=== PATIENT | male | born 1980 | race Two or more races ===

== ENCOUNTER 2021-11-20 23:36 | Emergency (ER) | payer SELFPAY ==
[~2021-11-20] VITALS: Ht 170.2 cm; Wt 81.6 kg
[2021-11-20 23:54] VITALS: BP 147/98
[2021-11-21] MEDS ORDERED: diphenhdrAMINE HCL 25 MG CAP PO ONE (05:00)
[2021-11-21] MEDS ORDERED: PRED20TA2 PO (05:12)
[2021-11-21] MEDS ORDERED: FAMO-12 PO (05:12)
[2021-11-21] MEDS ORDERED: predniSONE 20 MG TAB PO ONE (05:15)
[2021-11-21] MEDS ORDERED: FAMOTIDINE 20 MG TAB PO ONE (05:15)
== END 2021-11-21 05:29 | disposition home or self-care (01) ==
LOC: ER 23:36
DX: L50.9 Urticaria, unspecified (principal)
CPT/HCPCS: 99284; J7512

== ENCOUNTER 2021-11-26 20:04 | Inpatient (IN) | payer MEDICAID, OTHER ==
[~2021-11-26] VITALS: Ht 170.2 cm; Wt 87.2 kg
[~2021-11-26 20:04] MED LIST: FAMO-12 PO; PRED20TA2 PO
[2021-11-26] MEDS ORDERED: methylPREDNISolone SOD SUCC 125 MG/2 ML VL IV ONE (21:00)
[2021-11-26] MEDS ORDERED: FAMOTIDINE (10MG/ML) 2ML VL IV ONE (21:00)
[2021-11-26] MEDS ORDERED: diphenhdrAMINE HCL 50 MG/1 ML VL IV ONE (21:00)
[2021-11-26] MEDS ORDERED: ALBUTEROL SULF 2.5 MG/0.5ML(0.5%) NEB SOLN NEB ONE (21:15)
[2021-11-26] MEDS ORDERED: IPRATROPIUM BROM 0.5 MG/2.5ML INH SOL NEB ONE (21:15)
[2021-11-26] MEDS ORDERED: IPRATROPIUM BROM 0.5 MG/2.5ML INH SOL ONE (21:20)
[2021-11-26] MEDS ORDERED: ALBUTEROL SULF 2.5 MG/0.5ML(0.5%) NEB SOLN ONE (21:20)
[2021-11-26 23:14] LABS: Basophils # (auto) 0 10 ^3/uL (0-0.2); Eosinophils # (auto) 0 10 ^3/uL (0-0.8); Hematocrit 44.7 % (41.0-53.0); Hemoglobin 15.1 g/dL (13.5-17.5); Lymphocytes # (auto) 1.3 10 ^3/uL (0.4-5.4); Lymphocytes % (auto) 16.5 % (10.0-50.0); Mean Corpuscular Hgb Conc. 33.8 g/dL (32.0-36.0); Mean Corpuscular Volume 91.7 fL (80.0-100.0); Monocytes # (auto) 0.3 10 ^3/uL (0-1.3); Monocytes % (auto) 4.2 % (0.0-12.0); Neutrophils # (auto) 6.1 10 ^3/uL (1.6-8.6); Neutrophils % (auto) 79.3 % (37.0-80.0); Nucleated Red Blood Cells % 0.2 %; Red Blood Cells 4.87 10^6/uL (4.5-5.90); Red Cell Distribution Width 13.5 % (11.8-14.3); White Blood Cell 7.7 10^3/uL (4.4-10.8)
[2021-11-26 23:26] LABS: Albumin 3.5 g/dL (3.4-5.0); BUN/Creatinine Ratio 16.3; Potassium 4.2 mmol/L (3.5-5.1)
[2021-11-26 23:28] LABS: Bilirubin, Total 0.6 mg/dL (0.2-1.0); Total Protein 6.8 g/dL (6.4-8.2)
[2021-11-26] MEDS ORDERED: MORPHINE SULFATE INJECTION 2 MG/ML SYRG IV PRN (23:30)
[2021-11-26] MEDS ORDERED: NITROGLYCERIN 0.4 MG SL TAB SL PRN (23:30)
[2021-11-27] VITALS (8 sets, daily range): BP systolic 116–133; BP diastolic 78–93
[2021-11-27] MEDS ORDERED: ACETAMINOPHEN 325 MG TAB PO PRN (01:00)
[2021-11-27] MEDS ORDERED: diphenhdrAMINE HCL 25 MG CAP PO PRN (01:00)
[2021-11-27] MEDS ORDERED: TEMAZEPAM 15 MG CAP PO PRN (01:00)
[2021-11-27] MEDS ORDERED: ONDANSETRON HCL 4 MG/2 ML VIAL IV PRN (01:00)
[2021-11-27] MEDS ORDERED: SODIUM CHLORIDE 0.9% 1,000 ML IV ONE (01:00)
[2021-11-27] MEDS ORDERED: PANTOPRAZOLE 40 MG TAB PO SCH (10:00)
[2021-11-27] MEDS: FAMOTIDINE (10MG/ML) 2ML VL IV SCH ×2 (10:48→21:18)
[2021-11-27] MEDS: methylPREDNISolone SOD SUCC 125 MG/2 ML VL IV SCH ×2 (10:49→21:19)
[2021-11-28 05:00] VITALS: BP 113/75
[2021-11-28 07:51] LABS: Albumin 3.7 g/dL (3.4-5.0); Calcium 8.7 mg/dL (8.5-10.1); Potassium 3.9 mmol/L (3.5-5.1)
[2021-11-28 07:54] LABS: BUN/Creatinine Ratio 16.3; Bilirubin, Total 0.7 mg/dL (0.2-1.0); Total Protein 7.5 g/dL (6.4-8.2)
[2021-11-28 08:53] VITALS: BP 129/75
[2021-11-28] MEDS ORDERED: DIPH25CA66 PO (09:55)
[2021-11-28] MEDS ORDERED: FAMO20TA10 PO (09:55)
[2021-11-28] MEDS ORDERED: PRED20TA2 PO (09:58)
[2021-11-28] MEDS: methylPREDNISolone SOD SUCC 125 MG/2 ML VL IV SCH (10:00)
[2021-11-28] MEDS ORDERED: FAMOTIDINE 20 MG TAB PO SCH (10:00)
[2021-11-28 12:03] VITALS: BP 129/75
[2021-11-28 13:00] VITALS: BP 140/85
== END 2021-11-28 12:30 | disposition home or self-care (01) | DRG 385 ==
LOC: ER 20:08 → TELE 23:16 → TELE-CENTR 23:48
PROVIDERS: ADMIT Nurse Practitioner; ATTEND Family Medicine
DX: L50.0 Allergic urticaria (principal); R74.01 Elevation of levels of liver transaminase levels; Z20.822 Contact with and (suspected) exposure to COVID-19
CPT/HCPCS: 36415; 71045; 80053; 84484; 85025; 94640; 96374; 96375; 99291; G0378; J3490